=== PATIENT | male | born 1970 | race Two or more races ===

== ENCOUNTER 2024-07-29 20:46 | Emergency (ER) | payer MEDICAID, SELFPAY ==
[2024-07-29 20:47] VITALS: BMI 23.3
--- NOTE | 2024-07-29 20:48 | EKG_ITS ---
[facility] Test Date: 2024-07-29 Pat Name: SUE THOMAS Department: Room: - Gender: Male Voice Professor: : [id number] Requested By: Aakash Dias Order Number: [id number] Reading MD: Aakash Dias Measurements Intervals [place] Rate: 76 P: 25 AK: 175 QRS: -8 QRSD: 98 T: 37 QT: 384 QTc: 432 Interpretive Statements SINUS RHYTHM MODERATE VOLTAGE CRITERIA FOR LVH, CONSIDER NORMAL VARIANT [MEETS CRITERIA IN ONE OF: R(aVL), S(V1), R(V5), R(V5/V6)+S(V1)] No previous ECG available for comparison /store/S0/[id number].pdf
[2024-07-29 21:14] VITALS: BP 150/89; PULSE 75; RESP 18; TEMP 36.6; O2SAT 96
--- NOTE | 2024-07-29 21:21 | XR_ITS ---
Examination: PA chest single view TECHNIQUE: Upright PA chest single view. Examination time: July 29, 2024 2131 hours INDICATIONS: Onset chest pain today. FINDINGS: Mild prominence of ventricle 4 mm nodule left upper lobe which may be calcified No pneumonia or pulmonary edema The osseous structures are intact IMPRESSION: No pneumonia or pulmonary edema 4 mm pulmonary nodule left upper lobe which may be calcified, recommend prior films for comparison or three-month follow-up PA chest if no prior films are available
--- NOTE | 2024-07-29 21:21 | PD.EDRME ---
Rapid Medical Screening Exam E Arrival date/time: 07/29/24 20:46 54M with no significant PMH presents to ED with 2 hours of CP, but denies cough and SOB. Chief Complaint: Chest Pain Vital signs: Vital Signs Temperature 98 F 07/29/24 21:14 Pulse Rate 75 07/29/24 21:14 Respiratory Rate 18 07/29/24 21:14 Blood Pressure 150/89 H 07/29/24 21:14 Pulse Oximetry (%) 96 07/29/24 21:14 Oxygen Delivery Method Room Air 07/29/24 21:14
[2024-07-29 22:20] LABS: Basophils # (Auto) 0.1 Thou/mm3 (0.0-0.2); Basophils % (Auto) 1 % (0-2.5); Eosinophils # (Auto) 0.2 Thou/mm3 (0.0-0.5); Eosinophils % (Auto) 3 % (0-10); Hemoglobin 14.6 g/dL (13.5-16.0); Immature Granulocytes % (Auto) 0 % (0-0); Immature Granulocytes Auto 0.02 Thou/mm3 (0.00-0.00); Lymphocytes # (Auto) 2.3 Thou/mm3 (1.0-4.8); Lymphocytes % (Auto) 28 % (10-50); Mean Corpuscular Hemoglobin 31.7 pg (25.0-35.0); Mean Corpuscular Volume 93 fL (80-100); Monocytes # (Auto) 0.6 Thou/mm3 (0.0-0.8); Monocytes % (Auto) 7 % (0-12); Neutrophils % (Auto) 61 % (37-80); Nucleated Red Blood Cell % 0 /100 WBC (0); Platelet Count 249 Thou/mm3 (140-440); RDW Standard Deviation 44.1 fL (35.1-43.9); Red Blood Count 4.61 Miln/mm3 (4.50-5.90); White Blood Count 8.2 Thou/mm3 (3.8-10.6)
[2024-07-29 22:40] LABS: Alanine Aminotransferase 47 U/L (10-49); Albumin, Serum 4.9 gm/dL (3.5-5.0); Albumin/Globulin Ratio 1.4 (1.2-2.2); Alkaline Phosphatase 98 U/L (46-116); Anion Gap 9 (7-16); Aspartate Amino Transferase 32 U/L (0-34); BUN/Creatinine Ratio 23 Ratio (12-20); Bilirubin,Total 0.5 mg/dL (0.3-1.2); Blood Urea Nitrogen 14 mg/dL (9-23); Calcium 10.1 mg/dL (8.3-10.6); Calcium (Corrected) 10.1 mg/dL (8.5-10.1); Carbon Dioxide 27.8 mMol/L (20.0-31.0); Chloride 104 mMol/L (98-107); Creatinine (Component) 0.6 mg/dL (0.6-1.3); Globulin 3.5 gm/dL (2.3-3.5); Glucose 81 mg/dL (74-106); Osmolality,Calculated 280 (275-295); Potassium 4.2 mMol/L (3.4-5.1); Sodium 141 mMol/L (136-145); Total Protein 8.4 gm/dL (5.7-8.2); Troponin I < 0.002 ng/mL (0.0-0.045); eGFR > 60 See Note
[2024-07-29 22:41] LABS: Partial Thromboplastin Time 27.7 Seconds (22.0-36.0); Prothrombin Time 10.6 Seconds (9.0-12.2)
--- NOTE | 2024-07-29 23:11 | PD.EDCHEST ---
ED Chest Pain RME/HPI General Chief Complaint: Chest Pain Stated Complaint: CHEST PAIN Time Seen by Provider: 07/29/24 23:07 Arrival date/time: 07/29/24 20:46 RME / HPI RME / HPI narrative: 54-year-old male patient with no significant past medical history came in for evaluation regarding chest pain left-sided for more than 2 hours. Severity mild. Denies any shortness of breath denies any diaphoresis denies any other complaints no medication was taken prior to arrival. Related Data Allergies Allergy/AdvReac Type Severity Reaction Status Date / Time No Known Allergies Allergy Verified 07/29/24 20:46 Review of Systems Review of Systems Narrative Review of Systems: Review of system reviewed and within normal limits except mentioned in HPI ED Exam Narrative Physical exam: VITAL SIGNS: Reviewed. GENERAL APPEARANCE: Alert and interactive, follows commands, no acute distress, HEAD AND FACE: Non-traumatic. ENT: PERRL, pink conjunctivitis, eyelid no trauma, Mucous membrane moist. NECK: Supple, nontender, no nuchal rigidity. CHEST: No tenderness, no crepitus, no paradoxical movement, no retractions. LUNGS: Clear, well ventilated, symmetric, no rales, no wheezing, no ronchi, no stridor, good breath sounds bilaterally. HEART: Regular rate, regular rhythm, no murmur, no gallops. ABDOMEN: Soft, positive bowel sounds, nondistended, no guarding, nontender, no rebound, no masses, RECTAL: Deferred. GENITAL: Deferred. NEUROLOGICAL: Gross motor function intact sensory function intact, Appropriate for age. MUSCULOSKELETAL: low back nontender, full range of motion. EXTREMITIES: Nontender, full range of motion. SKIN: Color pink, dry, no rash, no lacerations, no abrasions, no contusions. LYMPHATICS: Deferred. Course Quality Measures none Orders Category Date Time Status EKG (ED ONLY) *Do not use* NOW Care 07/29/24 20:48 Completed EKG (ED Only) Stat Exams 07/29/24 20:48 Draft XR chest 1V portable Stat Exams 07/29/24 21:21 Completed CBC Stat Lab 07/29/24 21:37 Completed Comprehensive Metabolic Panel Stat Lab 07/29/24 21:37 Completed Partial Thromboplastin Time Stat Lab 07/29/24 21:37 Completed Prothrombin Time with INR Stat Lab 07/29/24 21:37 Completed Troponin I Stat Lab 07/29/24 21:37 Completed Vital Signs Vital signs: Vital Signs Temperature 98 F 07/29/24 21:14 Pulse Rate 75 07/29/24 21:14 Respiratory Rate 18 07/29/24 21:14 Blood Pressure 150/89 H 07/29/24 21:14 Pulse Oximetry (%) 96 07/29/24 21:14 Oxygen Delivery Method Room Air 07/29/24 21:14 Chest Pain MDM Narrative MDM Narrative:: 54-year-old male patient with no significant past medical history came in for evaluation regarding chest pain left-sided for more than 2 hours. Severity mild. Denies any shortness of breath denies any diaphoresis denies any other complaints no medication was taken prior to arrival. Patient's cardiac workup today all came back normal. Repeat troponin is not needed, has been having chest pain for more than 2 hours, and prior to discharge, patient told me that his chest pain is totally gone. Patient's chest x-ray showed incidental finding of pulmonary nodule, patient was given a copy of his chest x-ray, and advised him to follow-up with PCP in 3 months for repeat chest x-ray to monitor the pulmonary nodule. Patient appears nontoxic and hemodynamically stable. Patient discharged home and instructed to follow-up with primary care provider in 24 to 48 hours. Instructed to return to the emergency department immediately if worsening of symptoms Patient data External records reviewed:: None Clinical information provided by:: patient Social determinants that could affect healthcare access:: none Patient has the following chronic illnesses:: None How is presenting disease/condition affected by chronic disease/condition?: no chronic disease Evaluation data The following diagnostics were reviewed and interpreted by me:: lab results, radiology exam(s) and EKG tracing(s) Lab and/or radiology exams considered but not ordered:: None Interpretation Summary: Laboratory workup including troponin came back normal. Chest x-ray results showed No pneumonia or pulmonary edema 4 mm pulmonary nodule left upper lobe which may be calcified, recommend prior films for comparison or three-month follow-up PA chest if no prior films are available EKG showed sinus rhythm, ventricular rate of 76 bpm, no ST segment elevation depression noted. Medications / Prescriptions Medications or Prescriptions considered but not ordered:: None Medication administrations:: None Consultations Consultation(s) initiated? (list below): No Diagnosis Chest Pain Differential Diagnosis: pneumothorax, stable angina, costochondritis and chest pain Most likely diagnosis given after review of the tests above:: Noncardiac chest pain Admission Indicated Admission indicated?: not indicated Explain why admission is indicated or not indicated:: Stable for discharge Admission Request Was there a request for admission?: No Disposition Plan Disposition Plan: Discharge Discharge Attestation Discharge Attestation: The patient and all family members were given an opportunity to ask questions and understood the discharge instructions. Discharge instructions specifically effects, indications for sooner follow up or return to the emergency department, and the expected course of current diagnosis. Patient condition: Stable Discharge Plan Plan Patient Disposition: HOME (Self Care) Disposition Comment: stable Prescriptions/Referrals Referrals: Lesly Almeida MD [Primary Care Provider] - In 1 week Problem List Clinical Impression: Non-cardiac chest pain Patient/Caregiver Discharge Instructions Discharge Activity: activity as tolerated Education Materials: ED Chest Pain, Noncardiac Additional Instructions: Thank you for the opportunity for serving you today. You are stable for discharged . You are advised to: Follow-up with your PCP in 1 to 2 days Return to ED for worsening of symptoms Increase oral fluids Follow-up with your PCP in 3 months for repeat chest x-ray due to incidental finding of pulmonary nodule. Print Language: Kinyarwanda Stand Alone Forms: Beckie Award Info., Patient Portal Info Letter TORIBIO/TUNG Supervising Physician TORIBIO/TUNG Supervising Physician: MD Von
== END 2024-07-29 23:27 | disposition home or self-care (01) ==
PROVIDERS: Physician Assistant; Emergency Provider Emergency Medicine; PCP Obstetrics & Gynecology
DX: R07.89 Other chest pain (principal); R91.1 Solitary pulmonary nodule; R94.31 Abnormal electrocardiogram [ECG] [EKG]
CPT/HCPCS: 36415; 71045; 80053; 84484; 85025; 85610; 85730; 93005; 99283